=== PATIENT | male | born 1975 | race Caucasian/White ===

== ENCOUNTER 2023-10-11 06:28 | Outpatient (RCR) | payer OTHER, SELFPAY | END 2023-10-11 23:59 | disposition home or self-care (01) | LOC: RST 06:28 | PROVIDERS: ATTENDING PHYSICIAN Psychiatry & Neurology Neurology; FAMILY PHYSICIAN Nurse Practitioner Primary Care | DX: R41.89 Other symptoms and signs involving cognitive functions and awareness (principal); G93.0 Cerebral cysts; R41.3 Other amnesia; R47.02 Dysphasia; R41.841 Cognitive communication deficit | CPT/HCPCS: 92523 ==

== ENCOUNTER 2023-10-25 07:25 | Outpatient (RCR) | payer OTHER, SELFPAY | END 2023-11-01 23:59 | disposition home or self-care (01) | LOC: RST 07:25 | PROVIDERS: ATTENDING PHYSICIAN Psychiatry & Neurology Neurology; FAMILY PHYSICIAN Nurse Practitioner Primary Care | DX: R41.89 Other symptoms and signs involving cognitive functions and awareness (principal); G93.0 Cerebral cysts; R41.3 Other amnesia; R47.02 Dysphasia; R41.841 Cognitive communication deficit | CPT/HCPCS: 92507 ==

== ENCOUNTER → 2024-02-09 15:08 | Outpatient (REF) | payer OTHER, SELFPAY | LOC: WDC 15:08 | PROVIDERS: ATTENDING PHYSICIAN Nurse Practitioner Primary Care | DX: Z12.31 Encounter for screening mammogram for malignant neoplasm of breast (principal); Z15.01 Genetic susceptibility to malignant neoplasm of breast | CPT/HCPCS: 77062; 77066 ==

== ENCOUNTER → 2024-06-11 15:28 | Outpatient (REF) | payer OTHER, SELFPAY | LOC: DHSLP 15:28 | PROVIDERS: ATTENDING PHYSICIAN Internal Medicine Critical Care Medicine; FAMILY PHYSICIAN Nurse Practitioner Primary Care | DX: G47.30 Sleep apnea, unspecified (principal); R06.83 Snoring | CPT/HCPCS: 95800 ==

== ENCOUNTER → 2025-02-21 10:46 | Outpatient (REF) | payer OTHER, SELFPAY | LOC: DHSLP 10:46 | PROVIDERS: ATTENDING PHYSICIAN Internal Medicine Critical Care Medicine; FAMILY PHYSICIAN Nurse Practitioner Primary Care | DX: G47.33 Obstructive sleep apnea (adult) (pediatric) (principal); G47.61 Periodic limb movement disorder; G47.00 Insomnia, unspecified | CPT/HCPCS: 95810 ==